=== PATIENT | male | born 1970 | race Caucasian/White ===

== ENCOUNTER 2019-11-13 09:42 | Outpatient (CLI) | payer MEDICARE, OTHER, SELFPAY ==
--- NOTE | 2019-11-13 10:20 | NEURO_ITS ---
PATIENT NUMBER: [id number] DATE OF SERVICE: 11/13/2019 IMPRESSION: Patient complains of increasing pain and numbness of upper extremities. # Fairly normal nerve conduction study including F-waves # Normal needle/EMG exam # Clinical correlation recommended Nerve Conduction Studies Anti Sensory Summary Table Stim Site NR Peak (ms) P-T Amp (?V) Site1 Site2 Delta-P (ms) Dist (cm) Bobby (m/s) Left Median Anti Sensory (2-3nd Digit) Wrist 3.1 20.2 Wrist 2-3nd Digit 3.1 14.0 45 Wrist 3.2 25.1 Wrist 2-3nd Digit 3.1 14.0 45 Right Median Anti Sensory (2-3nd Digit) Wrist 3.2 17.0 Wrist 2-3nd Digit 3.2 14.0 44 Wrist 3.4 20.5 Wrist 2-3nd Digit 3.2 14.0 44 Left Radial Anti Sensory (Base 1st Digit) Wrist 1.9 15.6 Wrist Base 1st Digit 1.9 0.0 Right Radial Anti Sensory (Base 1st Digit) Wrist 2.1 11.2 Wrist Base 1st Digit 2.1 0.0 Left Ulnar Anti Sensory (5th Digit) Wrist 2.8 52.3 Wrist 5th Digit 2.8 14.0 50 Right Ulnar Anti Sensory (5th Digit) Wrist 2.5 57.0 Wrist 5th Digit 2.5 14.0 56 Motor Summary Table Stim Site NR Onset (ms) O-P Amp (mV) Site1 Site2 Delta-0 (ms) Dist (cm) Bobby (m/s) Left Median Motor (Abd Poll Brev) Wrist 3.9 5.1 Elbow Wrist 5.2 30.0 58 Elbow 9.1 4.4 Right Median Motor (Abd Poll Brev) Wrist 3.8 1.6 Elbow Wrist 5.0 29.0 58 Elbow 8.8 1.1 Left Ulnar Motor (Abd Dig Minimi) Wrist 2.6 6.5 A Elbow Wrist 5.5 30.0 55 A Elbow 8.1 5.5 Right Ulnar Motor (Abd Dig Minimi) Wrist 3.5 4.3 A Elbow Wrist 4.9 33.0 67 A Elbow 8.4 2.5 F Wave Studies NR F-Lat (ms) L-R F-Lat (ms) Left Median (Mrkrs) (Abd Poll Brev) 32.27 0.45 Right Median (Mrkrs) (Abd Poll Brev) 31.81 0.45 Left Ulnar (Mrkrs) (Abd Dig Min) 30.15 0.23 Right Ulnar (Mrkrs) (Abd Dig Min) 30.39 0.23 EMG Side Muscle Nerve Root Ins Act Fibs Amp Dur Recrt Comment Right 1stDorInt Ulnar C8-T1 Nml Nml Nml Nml Nml Right Ext Indicis Radial (Post Int) C7-8 Nml Nml Nml Nml Nml Right Ext Digitorum Radial (Post Int) C7-8 Nml Nml Nml Nml Nml Right BrachioRad Radial C5-6 Nml Nml Nml Nml Nml Right PronatorTeres Median C6-7 Nml Nml Nml Nml Nml Right Abd Poll Brev Median C8-T1 Nml Nml Nml Nml Nml Left 1stDorInt Ulnar C8-T1 Nml Nml Nml Nml Nml Left Ext Indicis Radial (Post Int) C7-8 Nml Nml Nml Nml Nml Left Ext Digitorum Radial (Post Int) C7-8 Nml Nml Nml Nml Nml Left BrachioRad Radial C5-6 Nml Nml Nml Nml Nml Left PronatorTeres Median C6-7 Nml Nml Nml Nml Nml Left Abd Poll Brev Median C8-T1 Nml Nml Nml Nml Nml MTDD
== END 2019-11-13 09:43 | disposition home or self-care (01) ==
PROVIDERS: PCP Internal Medicine; Visit Provider Psychiatry & Neurology Neurology
DX: R20.2 Paresthesia of skin (principal)
CPT/HCPCS: 95886; 95911

== ENCOUNTER 2020-05-10 10:36 | Outpatient (CLI) | payer MEDICARE, OTHER, SELFPAY ==
--- NOTE | ~2020-05-10 | MR_ITS ---
EXAMINATION: MR lumbar spine wo con EXAM DATE: 05/10/2020 11:23 INDICATION: Low back pain. TECHNIQUE: Multi-sequential, multiplanar MR images of the lumbar spine were obtained without contrast . Sagittal T1, T2, T2 fat saturation images. Axial T2 weighted images. There is no prior study for comparison. FINDINGS: Posterior and interbody fusion L3-S1. There are laminectomies L4 and L5. The vertebral bodi es are aligned in the AP dimension. There are no suspicious marrow signal abnormalities. Paraspinal s oft tissue is unremarkable. The conus medullaris terminates at the T12-L1 level and has normal signal intensity and morphology. Level by level evaluation: T12-L1: Disc does not extend beyond the endplate margin. Facet arthropathy: None. Neural foraminal stenosis: No stenosis. Central canal stenosis: No stenosis. L1-L2: Disc does not extend beyond the endplate margin. Facet arthropathy: None. Neural foraminal stenosis: No stenosis. Central canal stenosis: No stenosis. L2-L3: There is a minimal diffuse disc bulge. Facet arthropathy: Mild. Neural foraminal stenosis: Mild left. Central canal stenosis: No stenosis. L3-L4: This level is fused. Facet arthropathy: Poorly visualized. Neural foraminal stenosis: Mild left. Central canal stenosis: No stenosis. L4-L5: This level is fused. Poorly visualized Facet arthropathy: None. Neural foraminal stenosis: No stenosis. Central canal stenosis: No stenosis. L5-S1: This level is fused. Facet arthropathy: Poorly visualized. Neural foraminal stenosis: No stenosis. Central canal stenosis: No stenosis. IMPRESSION: 1. Fusion L3-S1. 2. Overall mild to moderate spondylosis. Reviewed, dictated and finalized at location A.
== END 2020-05-10 10:37 | disposition home or self-care (01) ==
LOC: ANHIMG 10:45
PROVIDERS: PCP Internal Medicine; Visit Provider Psychiatry & Neurology Neurology
DX: M54.5 Low back pain (principal); Z98.1 Arthrodesis status; M47.816 Spondylosis without myelopathy or radiculopathy, lumbar region
CPT/HCPCS: 72148